=== PATIENT | female | born 2000 | race African-American/Black ===

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

== ENCOUNTER 2022-06-07 19:43 | Emergency (ER) | payer OTHER, SELFPAY ==
--- NOTE | 2022-06-07 19:50 | ED.LOWEXIN ---
HPI - Extremity Injury (Lower) General Chief Complaint: Unspecified Stated Complaint: Left Hip Pain Time Seen by Provider: 06/07/22 20:14 Source: patient and RN notes reviewed Mode of arrival: ambulatory Limitations: no limitations History of Present Illness HPI Narrative: 20-year-old female presents concern for 2 month history of left hip pain without injury. She reports pain is not present walking, only present when she lays on the hip or puts pressure on the hip. She denies bruising, swelling, redness, warmth. Denies fever, body aches, chills, sweats, rash. She denies other interventions such as ice or heat. She reports it is not painful to walk. MD complaint: other (Hip pain) Related Data Home Medications Medication Instructions Recorded Confirmed etonogestrel 68 mg subdermal 1 implant subdermal 06/07/22 implant (Nexplanon) Allergies Allergy/AdvReac Type Severity Reaction Status Date / Time bismuth subsalicylate AdvReac Vomiting Verified 06/07/22 20:10 [From Pepto-Bismol] red dye AdvReac Vomiting Verified 06/07/22 20:10 Review of Systems Review of Systems: CONSTITUTIONAL: Denies malaise, chills, sweats, or fever. SKIN: Denies rash or itching, open skin, laceration, abrasion, redness, warmth, swelling. MUSCULOSKELETAL: Reports left hip pain NEUROLOGIC: Denies numbness, weakness All systems reviewed & are unremarkable except as noted in HPI and below PMFSH Past Medical History Medical History (Updated 06/07/22 @ 20:22 by Olena Patel NP) Scoliosis Surgical History Surgical History (Updated 09/22/19 @ 00:08 by GWEN Valera) No significant past surgical history Family History Family History (Updated 09/15/19 @ 14:25 by GWEN Valera) Grandparent Diabetes mellitus Social History Social History (Updated 09/15/19 @ 14:26 by GWEN Valera) Smoking status: Never smoker Second hand tobacco smoke exposure: Yes Alcohol intake: never Substance use: never Gender identity (if verbalized by the patient): Female Comments At time of signature, agree with nursing past medical, surgical, social and family history. There is no relevant family history pertinent to the presenting complaint Exam Narrative: GENERAL: Well-appearing, well-nourished, and in no acute distress. HEAD: Normocephalic, atraumatic. EYES: PERRLA, conjunctivae clear NECK: Supple. CHEST: Speaks in full sentences. No respiratory distress. HEART: Regular rate and rhythm. Normal and equal peripheral pulses. EXTREMITIES: Left hip and lower extremity has normal strength and sensation, grossly normal range of motion. No edema or ecchymosis. Normal sensation with sensitivity to light touch and pain. No point tenderness. No open wounds, no skin tenting, no devitalized tissue or atrophy, no trophic changes, no obvious deformity, alignment normal, nearby joints and structures intact. Distal pulses palpable and equal bilaterally, skin warm, dry, pink. Capillary refill less than 3 seconds. SKIN: Warm, dry, no rash. NEURO: Alert and oriented x3. PSYCH: Normal mood and affect Course Course Emergency Course: Patient is aware of diagnosis, understands and agrees to treatment plan. Anticipatory guidance given. Patient agrees to follow-up as directed and is aware of reasons to seek care at the emergency department. Portions of this record may have been created with voice recognition software Level of Care: Express Care Visit Vital Signs Vital signs: Reviewed. MDM - Extremity Injury (Lower) MDM Narrative Medical decision making narrative: Patients injury and pain is consistent with musculoskeletal etiology. No signs of neurological or vascular compromise on exam. Compartments and tissues are soft without signs of compartment syndrome. Pain is felt appropriate for further evaluation on an outpatient basis. Critical Care Time Critical Care Time Critical Care Time: No Discharge Plan Disch
[2022-06-07 19:52] VITALS: BP 120/79; PULSE 74; RESP 20; TEMP 36.8; O2SAT 100
== END 2022-06-07 20:30 | disposition home or self-care (01) ==
PROVIDERS: Emergency Provider Nurse Practitioner
DX: M25.552 Pain in left hip (principal)
CPT/HCPCS: 99212; G0463

== ENCOUNTER 2023-05-19 13:45 | Emergency (ER) | payer OTHER, SELFPAY ==
[2023-05-19 13:49] VITALS: BP 129/87; PULSE 72; RESP 16; TEMP 36.9; O2SAT 100
[2023-05-19 13:56] VITALS: BP 129/87; PULSE 72; RESP 16; TEMP 36.9; O2SAT 100
--- NOTE | 2023-05-19 14:22 | ED.SKABFB ---
HPI - Skin/Abscess/Foreign Bdy General Chief complaint: Skin/Abscess/Foreign Body Stated complaint: bee sting swelling on right arm Time Seen by Provider: 05/19/23 14:23 Source: patient, RN notes reviewed and old records reviewed Mode of arrival: ambulatory Limitations: no limitations History of Present Illness HPI narrative: Siri Oneal presents to the [facility] today for complaints of bee sting to her right arm which occurred 2 days ago. Patient has blotchy redness and swelling to her right forearm around sting hsayne on right forearm which patient reports is itchy with no drainage noted MD complaint: insect bite/sting (itchy with red blotches and swelling) Onset (ago): day(s) (2) Location: RUE (right forearm) Severity scale (1-10): 3 Quality: aching and pruritic Treatments prior to arrival: other (calamine lotion and hydrocortisone) Related Data Home Medications Medication Instructions Recorded Confirmed etonogestrel 68 mg subdermal 1 implant subdermal 06/07/22 implant (Nexplanon) Allergies Allergy/AdvReac Type Severity Reaction Status Date / Time bismuth subsalicylate AdvReac Vomiting Verified 05/19/23 13:56 [From Pepto-Bismol] red dye AdvReac Vomiting Verified 05/19/23 13:56 Review of Systems Review of Systems: CONSTITUTIONAL: Denies fever, chills, or sweats. CARDIOVASCULAR: Denies chest pain, palpitations, or edema. RESPIRATORY: Denies cough or dyspnea. GASTROINTESTINAL: Denies abdominal pain, nausea, vomiting SKIN: Reports redness and swelling. Denies purulent drainage, bee sting left foearm MUSCULOSKELETAL: Denies myalgia. NEUROLOGIC: Denies headache, numbness All systems reviewed & are unremarkable except as noted in HPI and below PMFSH Past Medical History Medical History (Updated 05/20/23 @ 21:04 by Petty Love NP) Scoliosis Surgical History Surgical History No significant past surgical history Family History Family History Grandparent Diabetes mellitus Social History Social History Smoking status: Never smoker Second hand tobacco smoke exposure: Yes Alcohol intake: never Substance use: never Living arrangements: with family Occupation/Education: student Gender identity (if verbalized by the patient): Female Comments At time of signature, agree with nursing past medical, surgical, social and family history. There is no relevant family history pertinent to the presenting complaint Exam Narrative: GENERAL: Well-appearing, well-nourished, and in no acute distress. HEAD: Normocephalic, atraumatic. EYES: PERRLA and EOMI. ENT: Nares clear, no rhinorrhea or epistaxis. Mucous membranes moist. NECK: Supple no lymphadenopathy. CHEST: Clear to auscultation. No respiratory distress.SAO2 100% on room air HEART: Regular rate and rhythm. No murmur heard. Normal peripheral pulses. ABDOMEN: Soft, nontender, nondistended, normal active bowel sounds. EXTREMITIES: Normal range of motion. No edema. SKIN: Warm, dry. Erythema, induration, tenderness, warmth around bee sting, no pustule formation, total area of redness 7cm X 9Cm. NEURO: No focal deficits. Alert and oriented x3. Course Course Emergency Course: Patient is aware of diagnosis, understands and agrees to treatment plan. Anticipatory guidance given. Patient agrees to follow-up as directed and is aware of reasons to seek care at the emergency department. Portions of this record may have been created with voice recognition software Level of Care: Express Care Visit Vital Signs Vital signs: Vital Signs Temperature 36.9 C 05/19/23 13:49 Pulse Rate 72 05/19/23 13:49 Respiratory Rate 16 05/19/23 13:49 Blood Pressure 129/87 05/19/23 13:49 Pulse Oximetry 100 05/19/23 13:49 Oxygen Delivery Room Air 05/19/23 13:49
== END 2023-05-19 14:35 | disposition home or self-care (01) ==
PROVIDERS: Emergency Provider Registered Nurse
DX: T63.441A Toxic effect of venom of bees, accidental (unintentional), initial encounter (principal); M41.9 Scoliosis, unspecified
CPT/HCPCS: 99213; G0463